=== PATIENT | female | born 1950 | race Caucasian/White ===

== ENCOUNTER 2019-10-16 10:26 | Outpatient (CLI) | payer MEDICARE ==
[~2019-10-16 10:26] MED LIST: DOCU-131 PO; LISI10TA2 PO; OXYC-302 PO
[2019-10-16] MEDS ORDERED: DIPH25CA46 PO (10:59)
[2019-10-16] MEDS ORDERED: FLUT9.9S NS (10:59)
[2019-10-16 11:39] LABS: ANION GAP 4 mmol/L (5-15); CALCIUM 9.4 mg/dL (8.5-10.1); CHLORIDE 108 mmol/L (98-107)
[2019-10-16 11:43] LABS: ALANINE AMINOTRANSFERASE 27 U/L (12-78); ALKALINE PHOSPHATASE 98 U/L (45-117); BILIRUBIN,TOTAL 0.3 mg/dL (0.2-1.0); TOTAL PROTEIN 7.9 g/dL (6.4-8.2)
== END 2019-10-16 23:59 | disposition home or self-care (01) ==
LOC: STAR 10:26
PROVIDERS: ATTEND Internal Medicine Gastroenterology
DX: Z01.818 Encounter for other preprocedural examination (principal); Z11.59 Encounter for screening for other viral diseases; K80.21 Calculus of gallbladder without cholecystitis with obstruction
CPT/HCPCS: 36415; 80053; U0001

== ENCOUNTER 2019-10-23 07:09 | Day surgery (SDC) | payer MEDICARE ==
[~2019-10-23] VITALS: Ht 162.6 cm; Wt 74.0 kg
[~2019-10-23 07:09] MED LIST changes: +DIPH25CA46 PO; +FLUT9.9S NS
[2019-10-23] MEDS ORDERED: LACTATED RINGERS 1,000 ML IV SCH (07:19)
[2019-10-23 07:23] VITALS: BP 140/75
[2019-10-23] MEDS ORDERED: CHLORHEXIDINE 15 ML UDC ONE (07:27)
[2019-10-23] MEDS ORDERED: CHLORHEXIDINE 15 ML UDC MM ONE (07:30)
[2019-10-23] MEDS ORDERED: ROCURONIUM 10 MG/ML,10ML ONE (08:44)
[2019-10-23] MEDS ORDERED: FENTANYL PF 250 MCG/5ML ONE (08:47)
[2019-10-23] MEDS ORDERED: MIDAZOLAM 1 MG/ML, 2ML ONE (08:47)
[2019-10-23] MEDS ORDERED: DEXAMETHASONE 4 MG/ML, 1ML ONE ×2 (08:54→09:16)
[2019-10-23] MEDS ORDERED: PROPOFOL 10 MG/ML, 20ML ONE (09:17)
[2019-10-23] MEDS ORDERED: ONDANSETRON 2MG/ML, 2ML ONE (09:17)
[2019-10-23] MEDS ORDERED: SUCCINYLCHOLINE 20 MG/ML, 10ML ONE (09:17)
[2019-10-23] MEDS ORDERED: PROMETHAZINE 25 MG/ML, 1ML IVPush PRN (09:30)
[2019-10-23] MEDS ORDERED: HYDROcodone/APAP 7.5-325MG/15ML UDC PO PRN (09:30)
[2019-10-23] MEDS ORDERED: ONDANSETRON 2MG/ML, 2ML IVPush PRN (09:30)
[2019-10-23] MEDS ORDERED: INDOMETHACIN 50 MG SUPP.RECT ONE (09:30)
[2019-10-23] MEDS ORDERED: HYDROmorphone 1 MG/ML, 1ML INJ IVPush PRN (09:30)
[2019-10-23] MEDS ORDERED: INDOMETHACIN 50 MG SUPP.RECT PR ONE (09:30)
[2019-10-23] MEDS ORDERED: MEPERIDINE/PF 25MG/0.5ML IVPush PRN (09:30)
[2019-10-23] MEDS ORDERED: LABETALOL 5MG/ML, 20ML IV PRN (09:30)
[2019-10-23] MEDS ORDERED: FENTANYL PF 100 MCG/2ML ONE (09:54)
[2019-10-23] MEDS: FENTANYL PF 100 MCG/2ML IV PRN ×2 (09:55→10:30)
[2019-10-23] MEDS ORDERED: OMNIPAQUE 350 MG/ML, 50 ML BOTTLE ONE (10:09)
[2019-10-23] MEDS ORDERED: hydrALAzine 20 MG/ML, 1ML ONE (10:14)
[2019-10-23] MEDS: hydrALAzine 20 MG/ML, 1ML IV PRN ×2 (10:16→10:37)
[2019-10-23 10:32] LABS: BASOPHILS # (AUTO) 0.02 x10^3/uL (0-0.1); BASOPHILS % (AUTO) 0 % (0-1); EOSINOPHILS # (AUTO) 0.14 x10^3/uL (0-0.4); EOSINOPHILS % (AUTO) 2 % (1-7); LYMPHOCYTES # (AUTO) 1.29 x10^3/uL (1-3.4); LYMPHOCYTES % (AUTO) 16 % (22-44); MD NO; MEAN CORPUSCULAR HEMOGLOBIN 32.8 pg (27.0-34.8); MEAN CORPUSCULAR HGB CONC 33.8 g/dL (32.4-35.8); MEAN CORPUSCULAR VOLUME 96.8 fL (80-100); MEAN PLATELET VOLUME 9.9 fL (7.4-10.4); MONOCYTES # (AUTO) 0.38 x10^3/uL (0.2-0.8); MONOCYTES % (AUTO) 5 % (2-9); NEUTROPHILS # (AUTO) 6.02 x10^3/uL (1.8-6.8); NEUTROPHILS % (AUTO) 77 % (42-75); PLATELET COUNT 125 x10^3/uL (130-400); RED BLOOD COUNT 4.64 x10^6/uL (3.82-5.3); RED CELL DISTRIBUTION WIDTH 13.3 % (9.6-15.2)
[2019-10-23 10:46] LABS: ALANINE AMINOTRANSFERASE 62 U/L (12-78); ALBUMIN 3.5 g/dL (3.4-5.0); ANION GAP 8 mmol/L (5-15); CHLORIDE 111 mmol/L (98-107)
[2019-10-23 10:47] LABS: ALKALINE PHOSPHATASE 90 U/L (45-117); BILIRUBIN,TOTAL 0.5 mg/dL (0.2-1.0); TOTAL PROTEIN 6.9 g/dL (6.4-8.2)
[2019-10-23] MEDS ORDERED: PROMETHAZINE 25 MG/ML, 1ML ONE (11:03)
[2019-10-23] MEDS ORDERED: OMNIPAQUE 350 MG/ML, 100ML BOTTLE ONE (11:12)
[2019-10-23] MEDS ORDERED: LABETALOL 5MG/ML, 20ML ONE (11:37)
== END 2019-10-23 15:00 | disposition home or self-care (01) ==
LOC: OUT 07:09
PROVIDERS: ATTEND Internal Medicine Gastroenterology
DX: Z46.59 Encounter for fitting and adjustment of other gastrointestinal appliance and device (principal); K80.71 Calculus of gallbladder and bile duct without cholecystitis with obstruction; I11.0 Hypertensive heart disease with heart failure; I50.9 Heart failure, unspecified; Z79.899 Other long term (current) drug therapy
CPT/HCPCS: 36415; 43264; 43275; 71045; 74177; 74328; 80053; 83690; 85025; C1769; J0330; J0360; J1100; J2250; J2405; J2550; J2704; J3010; J7120; Q9967